=== PATIENT | male | born 1950 | race Native Hawaiian/Other Pacific Islander ===

== ENCOUNTER 2018-03-17 11:16 | Observation (INO) | payer OTHER ==
[~2018-03-17] VITALS: Ht 188 cm; Wt 78.5 kg
[2018-03-17 11:20] VITALS: BP 115/72; TEMP 98.1
[2018-03-17 11:39] LABS: PLATELET COUNT 359 K/uL (142-355)
[2018-03-17 12:24] LABS: POTASSIUM 4.1 mmol/L (3.6-5.2)
[2018-03-17 16:29] VITALS: BP 104/65; TEMP 98.3; Ht 188 cm; Wt 78.5 kg
[2018-03-17 20:00] VITALS: BP 100/57; TEMP 97.6
[2018-03-18] VITALS: BP 112/79; TEMP 97.6
[2018-03-18 04:00] VITALS: BP 143/90; TEMP 97.8
[2018-03-18 05:51] LABS: PLATELET COUNT 332 K/uL (142-355)
[2018-03-18 06:20] LABS: POTASSIUM 3.9 mmol/L (3.6-5.2)
[2018-03-18 08:00] VITALS: BP 130/82; TEMP 98
== END 2018-03-18 11:15 | disposition home or self-care (01) ==
LOC: ED 11:16 → MED/SURG 14:10
PROVIDERS: ADMIT Emergency Medicine
DX: R41.82 Altered mental status, unspecified (principal); Z79.899 Other long term (current) drug therapy; M62.81 Muscle weakness (generalized)
CPT/HCPCS: 36415; 80053; 80061; 81000; 82607; 82747; 85027; 93005; 94760; 96360; 99220; 99285; G0378

== ENCOUNTER → 2018-03-17 | Outpatient (CLI) | payer OTHER | END | disposition short-term general hospital (02) | LOC: AMB 10:55 | DX: R53.1 Weakness (principal); R47.81 Slurred speech | CPT/HCPCS: A0425; A0427 ==

== ENCOUNTER 2018-08-17 12:05 | Outpatient (CLI) | payer OTHER ==
[2018-08-17 12:35] LABS: PLATELET COUNT 275 K/uL (142-355)
[2018-08-17 13:01] LABS: POTASSIUM 4.6 mmol/L (3.6-5.2)
== END 2018-08-17 21:15 | disposition home or self-care (01) ==
LOC: LABW 12:05
PROVIDERS: Nurse Practitioner Adult Health
DX: G40.219 Localization-related (focal) (partial) symptomatic epilepsy and epileptic syndromes with complex partial seizures, intractable, without status epilepticus (principal); R26.89 Other abnormalities of gait and mobility; R29.6 Repeated falls; G45.9 Transient cerebral ischemic attack, unspecified
CPT/HCPCS: 36415; 80053; 82140; 82607; 82746; 85027